=== PATIENT | male | born 1935 | race Asian ===

== ENCOUNTER 2016-12-09 17:27 | Inpatient (IN) | payer MEDICARE, MEDICAID ==
--- NOTE | 2016-12-09 19:51 | ED Physician Chart ---
Chief Complaint/HPI - Patient Information Date Seen:: 12/09/16 Time Seen:: 17:30 Chief Complaint:: black tarry stools History of Present Illness:: location: general quality: black tarry stools severity: moderate duration: 4 days context: SN[facility] patient reports he has had black tarry stools for at least 4 days. no pain complaint. has not had this before. no fever. no vomiting. pt is in stable condition. no chest pain, no sob. mod factors: none assoc s/s: none hx from pt. Allergies:: Allergies Allergy/AdvReac Type Severity Reaction Status Date / Time No Known Allergies Allergy Verified 12/09/16 17:54 Vitals:: Vital Signs - 8 hr 12/09/16 17:27 Temp 97.5 F HR 60 RR 16 BP 92/62 O2 Sat % 98 Historian:: Patient, EMS Review:: Nurse's Note Reviewed, EMS run form Reviewed Review of Systems - Review of Systems General/Constitutional: No fever, No chills, No weight loss, No weakness, No diaphoresis, No edema, No loss of appetite Skin: No skin lesions, No rash, No bruising Head: No headache, No light-headedness Eyes: No loss of vision, No pain, No diplopia ENT: No earache, No nasal drainage, No sore throat, No tinnitus Neck: No neck pain, No swelling, No thyromegaly, No stiffness, No mass noted Cardio Vascular: No chest pain, No palpitations, No PND, No orthopnea, No edema Pulmonary: No SOB, No cough, No sputum, No wheezing GI: No nausea, No vomiting, No diarrhea, No pain, No melena, No hematochezia, No constipation, No hematemesis, Other (black tarry stools) G/U: No dysuria, No frequency, No hematuria Musculoskeletal: No bone or joint pain, No back pain, No muscle pain Endocrine: No polyuria, No polydipsia Psychiatric: No prior psych history, No depression, No anxiety, No suicidal ideation Hematopoietic: No bruising, No lymphadenopathy Allergic/Immuno: No urticaria, No angioedema Neurological: No syncope, No focal symptoms, No weakness, No paresthesia, No headache, No seizure, No dizziness, No confusion, No vertigo Past Medical History - Past Medical History Past Medical History: Other (atrial fibrillation, gout) Family History: None Social History: Non Smoker, No Alcohol, No Drug Use, Single, Care Facility Surgical History: None Psychiatricy History: None Medication: Reviewed Family Medical History - Family Member Mother History Unknown: Yes Physical Exam - Physical Examination General/Constitutional: Awake, Well-developed, well-nourished, Alert, No distress, GCS 15, Non-toxic appearing Head: Atraumatic Eyes: Lids, conjuctiva normal, PERRL, EOMI Skin: Nl inspection, No rash, No skin lesions, No ecchymosis, Well hydrated, No lymphadenopathy ENMT: External ears, nose nl, Nasal exam nl, Lips, teeth, gums nl Neck: Nontender, No JVD, No nuchal rigidity, No stridor Respiratory: Nl effort/Exclusion, Clear to Auscultation, No Wheeze/Rhonchi/Rales Cardio Vascular: RRR, No murmur, gallop, rubs, NL S1 S2 GI: No tenderness/rebounding/guarding, Normal BS's, Nondistended, No mass/bruits , No McBurney tenderness : No CVA tenderness Extremities: No tenderness or effusion, Full ROM, normal strength in all extremities (lower limbs with skin discoloration, hyperpigmentation. - chronic) , No edema, Normal digits & nails Neuro/Psych: Alert/oriented, Normal sensory exam, Normal motor strength, Judgement/insight normal, Mood normal, Normal gait, No focal deficits Misc: normal gait, Normal back, No paraspinal tenderness Labs/Radiology/EKG Results - Lab Results Results: Laboratory Tests 12/09/16 12/09/16 12/09/16 19:55 19:55 19:55 WBC 7.2 RBC 3.23 L Hgb 10.1 L Hct 29.5 L MCV 91.3 MCH 31.4 H MCHC Differential 34.4 RDW 15.9 Plt Count 111 L MPV 8.9 Neutrophils % 79.1 Lymphocytes % 9.1 L Monocytes % 10.2 H Eosinophils % 1.1 Basophils % 0.5 Sodium 135 L Potassium 4.6 Chloride 112 H Carbon Dioxide 15.4 L Anion Gap 12.2 BUN 76 H Creatinine 2.5 H Est GFR ( Amer) TNP Est GFR (Non-Af Amer) TNP BUN/Creatinine Ratio 30.4 Glucose 99 Calcium 9.2 Total Bilirubin 0.4 AST 21 ALT 12 Alkaline Phosphatase 81 Total Protein 6.9 Albumin 3.6 L Globulin 3.3 Albumin/Globulin Ratio 1.1 Urine Source Urine Color Urine Clarity Urine pH Ur Specific [place] Urine Protein Urine Glucose (UA) Urine Ketones Urine Blood Urine Nitrate Urine Bilirubin Urine Urobilinogen Ur Leukocyte Esterase Urine RBC Urine WBC Ur Epithelial Cells Urine Bacteria Digoxin 0.4 L 12/09/16 21:20 WBC RBC Hgb Hct MCV MCH MCHC Differential RDW Plt Count MPV Neutrophils % Lymphocytes % Monocytes % Eosinophils % Basophils % Sodium Potassium Chloride Carbon Dioxide Anion Gap BUN Creatinine Est GFR ( Amer) Est GFR (Non-Af Amer) BUN/Creatinine Ratio Glucose Calcium Total Bilirubin AST ALT Alkaline Phosphatase Total Protein Albumin Globulin Albumin/Globulin Ratio Urine Source CLEAN C Urine Color YELLOW Urine Clarity HAZY Urine pH 5.5 Ur Specific [place] 1.015 Urine Protein 30 H Urine Glucose (UA) NEGATIVE Urine Ketones NEGATIVE Urine Blood SMALL H Urine Nitrate NEGATIVE Urine Bilirubin NEGATIVE Urine Urobilinogen 0.2 Ur Leukocyte Esterase SMALL H Urine RBC 0-2 H Urine WBC >100 H Ur Epithelial Cells OCCASIONAL Urine Bacteria OCCASIONAL Digoxin - EKG Interpretations Comments:: ekg sinus tachycardia 104 atrial premature complexes LVH with secondary repolarization abnormality inferior infarct, old pt with no chest pain chronic findings no acute ST elevation no acute ST depression abnormal EKG ER READ ED Septic Shock - . Is Septic Shock (SBP<90, OR Lactate>4 mmol\L) present?: No - <6hrs of presentation: Vital Signs: Vital Signs - 8 hr 12/09/16 17:27 Temp 97.5 F HR 60 RR 16 BP 92/62 O2 Sat % 98 Reassessment (Disposition) - Reassessment Reassessment:: MDM: pt with 4 day history of tarry stools, stable vital signs, will admit and obtain GI consult. ER Course: pt with tachycardia initially, IV fluids administered. improved. Reassessment Condition:: Improved - Diagnosis Diagnosis:: lower GI bleed - Patient Disposition Discharge/Transfer:: Acute Care w/in this hosp Admitted to:: Med/Surg Admitting Medical Physician:: Ramiro Honeycutt Time:: 23:10 Condition at Disposition:: Stable, Improved
[2016-12-09] MEDS ORDERED: Sodium Chloride 0.9% 1,000 ML IV ONE (19:52)
[2016-12-09 21:53] LABS: % BASOPHILS 0.5 % (0.0-2.0); % EOSINOPHILS 1.1 % (0.0-5.0); % LYMPHOCYTES 9.1 % (20.0-50.0); % MONOCYTES 10.2 % (2.0-10.0); % NEUTROPHILS 79.1 % (40.0-80.0); HEMATOCRIT 29.5 % (39.0-49.0); HEMOGLOBIN 10.1 gm/dL (12.6-17.4); MEAN CELL VOLUME 91.3 fl (80-99); MEAN CORPUSCULAR HEMOGLOBIN 31.4 pg (27.0-31.0); MEAN CORPUSCULAR HGB CONC 34.4 pg (28.0-36.0); MEAN PLATELET VOLUME 8.9 fl; NEUTROPHILE ABSOLUTE 5.7 Th/cmm (1.8-8.0); PLATELET COUNT 111 Th/cmm (150-400); RED BLOOD COUNT 3.23 Mil/cmm (3.80-5.80); RED CELL DISTRIBUTION WIDTH 15.9 % (11.5-20.0); WHITE BLOOD COUNT 7.2 Th/cmm (4.8-10.8)
[2016-12-09 22:03] LABS: ALB/GLOB RATIO 1.1 (1.0-1.8); ALKALINE PHOSPHATASE 81 U/L (34-104); ANION GAP 12.2 (7.0-16.0); BILIRUBIN,TOTAL 0.4 mg/dL (0.3-1.0); BUN - UREA NITROGEN 76 mg/dL (7-25); BUN/CREATININE RATIO 30.4; CALCIUM SERUM 9.2 mg/dL (8.6-10.3); CARBON DIOXIDE 15.4 mEq/L (21.0-31.0); CHLORIDE 112 mEq/L (98-107); CREATININE - SERUM 2.5 mg/dL (0.7-1.3); GLUCOSE 99 mg/dL (70-105); POTASSIUM SERUM 4.6 mEq/L (3.5-5.1); SGOT 21 U/L (13-39); SGPT/ALT 12 U/L (7-52); SODIUM SERUM 135 mEq/L (136-145)
[2016-12-09 22:41] LABS: URINE BILIRUBIN NEGATIVE (NEGATIVE); URINE BLOOD SMALL (NEGATIVE); URINE COLOR YELLOW; URINE GLUCOSE (UA) NEGATIVE (NEGATIVE); URINE KETONE NEGATIVE (NEGATIVE); URINE PH 5.5; URINE PROTEIN 30 mg/dL (NEGATIVE)
[2016-12-09 22:42] LABS: URINE RBC 0-2 /hpf (0-5); URINE UROBILINOGEN 0.2 E.U./dL (0.2 - 1.0); URINE WBC >100 /hpf (0-5)
[2016-12-09 22:43] LABS: URINE BACTERIA OCCASIONAL /hpf (NONE SEEN); URINE EPITHELIAL CELLS OCCASIONAL /lpf (FEW)
[2016-12-10] MEDS ORDERED: cefTRIAXone 1 GM in 0.9% NS 50 ML IV ONE (01:00)
[2016-12-10] MEDS: Sodium Chloride 0.9% 1,000 ML IV SCH ×2 (02:12→22:00)
[2016-12-10 02:41] VITALS: BP 106/67
[2016-12-10 07:58] LABS: % BASOPHILS 0.5 % (0.0-2.0); % EOSINOPHILS 1.5 % (0.0-5.0); % LYMPHOCYTES 10.3 % (20.0-50.0); % MONOCYTES 11.2 % (2.0-10.0); % NEUTROPHILS 76.5 % (40.0-80.0); HEMATOCRIT 28.7 % (39.0-49.0); HEMOGLOBIN 9.6 gm/dL (12.6-17.4); MEAN CELL VOLUME 92.7 fl (80-99); MEAN CORPUSCULAR HEMOGLOBIN 30.9 pg (27.0-31.0); MEAN CORPUSCULAR HGB CONC 33.4 pg (28.0-36.0); MEAN PLATELET VOLUME 8.6 fl; NEUTROPHILE ABSOLUTE 5.8 Th/cmm (1.8-8.0); PLATELET COUNT 108 Th/cmm (150-400); RED CELL DISTRIBUTION WIDTH 16.1 % (11.5-20.0); WHITE BLOOD COUNT 7.5 Th/cmm (4.8-10.8)
[2016-12-10 08:09] LABS: ANION GAP 6.4 (7.0-16.0); BUN - UREA NITROGEN 70 mg/dL (7-25); BUN/CREATININE RATIO 30.4; CALCIUM SERUM 8.9 mg/dL (8.6-10.3); CARBON DIOXIDE 18.9 mEq/L (21.0-31.0); CHLORIDE 117 mEq/L (98-107); CHOLESTEROL 108 mg/dL (<200); CREATININE - SERUM 2.3 mg/dL (0.7-1.3); GLUCOSE 91 mg/dL (70-105); POTASSIUM SERUM 4.3 mEq/L (3.5-5.1); SODIUM SERUM 138 mEq/L (136-145); TRIGLYCERIDES 52 mg/dL (<150)
[2016-12-10 08:14] LABS: INR 1.08 (0.5-1.4); PROTHROMBIN TIME (TEST) 10.8 SECONDS (9.5-11.5)
[2016-12-10] MEDS: Multivitamin Tab PO SCH (08:57)
[2016-12-10] MEDS ORDERED: ARGININE PO SCH (09:00)
--- NOTE | 2016-12-10 20:58 | History & Physical ---
HISTORY OF PRESENT ILLNESS: The patient recently was discharged from [place] to [facility]. The patient apparently had a sudden onset of black tarry stools and was brought to the ER, and the patient was admitted for upper GI bleeding. The patient complains of generalized weakness, otherwise his systems' review was negative. PAST MEDICAL HISTORY: History of gout, history of atrial fibrillation, and history of no other problems. PHYSICAL EXAMINATION: GENERAL: Alert and oriented well-nourished male. VITAL SIGNS: Stable. HEAD: Normal. ENT: Normal. NECK: Supple. Nontender. LUNGS: Clear. CARDIOVASCULAR: S1 and S2 heard. ABDOMEN: Soft. Bowel sounds are heard. [employer]: Grossly normal. LABORATORY DATA: White count is 7.2, hemoglobin 10.1, and the patient's EKG showed sinus tachycardia ____ and atrial premature beats and LVH and old inferior infarct. DIAGNOSES: 1. Anemia, rule out upper gastrointestinal bleeding. 2. History of recent pneumonia. 3. History of chronic obstructive pulmonary disease. 4. History of gout. 5. History of atrial fibrillation. 6. History of inferior wall infarction . PLAN: The patient is being admitted and I will go ahead and do the GI consult and I will follow the patient. [facility]# [id number]
--- NOTE | 2016-12-10 22:57 | Admit Criteria Form ---
Admit Criteria Forms - Admit Criteria Diagnosis: PNEUMONIA, COMMUNITY ACQUIRED Clinical Indications for Admission to Inpatient Care ( Place 'X' for any and all applicable criteria): Admission is indicated for ANY ONE of the following (1)(2)(3): [ ]I. Hypoxemia indicated by ANY ONE of the following: [ ]a) Oxygen saturation less than 90% while breathing room air [ ]b) PO2 less than 60 mm Hg (8.0 kPa) while breathing room air [ ]c) Chronic lung disease with significant deterioration from baseline oxygenation [ ]II. Appropriate diagnostic testing and treatment unavailable in outpatient or recovery facility (eg,testing or infection control measures unavailable(10) [ X]III. Moderate-risk or high-risk category patients (Pneumonia Severity Index (PSI) class IV or V, or CURB-65 score of 3 or greater). [ ]IV. Outpatient treatment failure as indicated by ANY ONE of the following(9) : [ ]a) Failure to respond to antibiotic (eg, resistant organism) [ ]b) Clinically significant adverse effects from medication (eg, vomiting) [ ]c) Complications of pneumonia (eg, empyema, bacteremia) [ ]d) Significant worsening of comorbid cond necessitating inpatient care (eg, chronic heart failure) [ ]V. Intermediate-risk category patients (eg, PSI class III or CURB-65 score 2) who do not improve with initial therapy and observation. [ ]. Immunocompromised patients (eg, AIDS, chronic steroid use) at moderate or high risk based on clinical evaluation. [ ]VII. Complicated pleural effusions (eg, exudative, loculated) [ ]VIII.Hemodynamic instability [ ] IX. Altered mental status that is severe or persistent. [ ]X. Dehydration that is severe or persistent. [ ]XI. Bacteremia [ ]XII. Respiratory finding (eg. tachypnea) that do not respond to outpatient or observation care treatment Extended stay beyond goal length of stay may be needed for (20) [ ]a) Unclear diagnosis [ ]b) Pleural disease [ ]c) Severe pneumonia or treatment failure (25 [ ]d) Respiratory failure (anticipate invasive or noninvasive ventilatory support) [ ]e) Abnormal serum electrolytes (serum Na concentration less than 135 mEq/L (mmol/L) (32)(33) [ ]f) Clinically significant comorbid illness (eg, heart failure, atrial fibrillation with rapid heart rate, alcohol withdrawal, renal insufficiency)(34)(35) [ ]g) Comorbid acute exacerbation of COPD(36) [ ]h) Concomitant diagnosis of malignancy that may be associated with malnutrition, immunologic impairment, or bronchial obstruction. [ ]i) Concomitant altered mental status [ ]j) Culture-identified Gram-negative or antibiotic-resistant organism (eg, Pseudomonas, methicillin-resistant Staphylococcus aureus)(30) [ ]k) Healthcare-associated pneumonia The original [facility] content created by [employer] has been revised. The portions of the content which have been revised are identified through the use of italic text or in bold, and [facility] has neither reviewed nor approved the modified material. All other unmodified content is copyright [facility]. Please see references footnoted in the original [facility] [employer] edition 2016 Admit Criteria Met?: Yes
--- NOTE | 2016-12-11 01:36 | Consultation ---
INPATIENT GI CONSULT REFERRING PHYSICIAN: Dr. Honeycutt. REASON FOR CONSULTATION: Anemia, melena. HISTORY OF PRESENT ILLNESS: This is an 81-year-old male who has been having melena for the past 5 days and It was not associated with any nausea or vomiting. The patient denies having any abdominal pain. States his stools are dark and some loose. PAST MEDICAL HISTORY: Atrial fibrillation and gout. PAST SURGICAL HISTORY: None to add recently. FAMILY HISTORY: Noncontributory. SOCIAL HISTORY: No tobacco, alcohol, or IV drug usage. ALLERGIES: None. CURRENT MEDICATIONS: Zyloprim, Lanoxin, and normal saline. REVIEW OF SYSTEMS: Ten-point review of systems was performed. The pertinent positive was the melena. All other systems were otherwise negative. PHYSICAL EXAMINATION: VITAL SIGNS: Temperature 98, breathing 19, pulse of 101, blood pressure 93/60, and satting 97%. GENERAL: No apparent distress. EYES: Anicteric, normal conjunctivae. HEENT: Normocephalic and atraumatic. Moist mucous membranes. NECK: Soft, supple. CHEST: Clear, normal effort. CARDIOVASCULAR: Regular rate and rhythm. ABDOMEN: Soft, nontender, and nondistended. Normal bowel sounds. SKIN: Warm and dry. EXTREMITIES: Reveal no cyanosis. PSYCHOLOGIC: Alert and oriented x 3. LABORATORY DATA: Show white count ____, hemoglobin 9.6, and platelets of 108,000. INR is 1.08. LFTs were within normal limits. IMPRESSION: This is an 81-year-old male with melena and anemia, cause could be an upper versus lower source such as peptic ulcer disease, neoplasm, colitis, gastritis, etc. The patient was offered endoscopy, colonoscopy to evaluate the source of gastrointestinal bleeding and further therapeutic intervention. The patient declined. The patient was then made aware that failure to have proper workup could result in a missed diagnosis such as cancer, missed cure and treatment opportunity resulting in early or unforeseeable disability. He expressed understanding. All his questions were answered. At the present time, he is refusing to have ____. PLAN: 1. Follow H and H. 2. Consider EGD, colonoscopy if patient changes his mind. Thank you for allowing me to participate. Please call me if you have any questions. JOB# [id number]
[2016-12-11] MEDS: Sodium Chloride 0.9% 1,000 ML IV SCH ×2 (08:02→21:00)
[2016-12-11] MEDS: Multivitamin Tab PO SCH (08:12)
--- NOTE | 2016-12-11 09:59 | General Progress Note ---
Objective - Results Result Diagrams: 12/10/16 07:30 12/10/16 07:30 Recent Labs: Laboratory Last Values WBC 7.5 Th/cmm (4.8-10.8) 12/10/16 07:30 RBC 3.10 Mil/cmm (3.80-5.80) L 12/10/16 07:30 Hgb 9.6 gm/dL (12.6-17.4) L 12/10/16 07:30 Hct 28.7 % (39.0-49.0) L 12/10/16 07:30 MCV 92.7 fl (80-99) 12/10/16 07:30 MCH 30.9 pg (27.0-31.0) 12/10/16 07:30 MCHC Differential 33.4 pg (28.0-36.0) 12/10/16 07:30 RDW 16.1 % (11.5-20.0) 12/10/16 07:30 Plt Count 108 Th/cmm (150-400) L 12/10/16 07:30 MPV 8.6 fl 12/10/16 07:30 Neutrophils % 76.5 % (40.0-80.0) 12/10/16 07:30 Lymphocytes % 10.3 % (20.0-50.0) L 12/10/16 07:30 Monocytes % 11.2 % (2.0-10.0) H 12/10/16 07:30 Eosinophils % 1.5 % (0.0-5.0) 12/10/16 07:30 Basophils % 0.5 % (0.0-2.0) 12/10/16 07:30 PT 10.8 SECONDS (9.5-11.5) 12/10/16 07:30 INR 1.08 (0.5-1.4) 12/10/16 07:30 Sodium 138 mEq/L (136-145) 12/10/16 07:30 Potassium 4.3 mEq/L (3.5-5.1) 12/10/16 07:30 Chloride 117 mEq/L (98-107) H 12/10/16 07:30 Carbon Dioxide 18.9 mEq/L (21.0-31.0) L 12/10/16 07:30 Anion Gap 6.4 (7.0-16.0) L 12/10/16 07:30 BUN 70 mg/dL (7-25) H 12/10/16 07:30 Creatinine 2.3 mg/dL (0.7-1.3) H 12/10/16 07:30 Est GFR ( Amer) TNP 12/10/16 07:30 Est GFR (Non-Af Amer) TNP 12/10/16 07:30 BUN/Creatinine Ratio 30.4 12/10/16 07:30 Glucose 91 mg/dL (70-105) 12/10/16 07:30 Calcium 8.9 mg/dL (8.6-10.3) 12/10/16 07:30 Total Bilirubin 0.4 mg/dL (0.3-1.0) 12/09/16 19:55 AST 21 U/L (13-39) 12/09/16 19:55 ALT 12 U/L (7-52) 12/09/16 19:55 Alkaline Phosphatase 81 U/L (34-104) 12/09/16 19:55 Total Protein 6.9 gm/dL (6.0-8.3) 12/09/16 19:55 Albumin 3.6 gm/dL (4.2-5.5) L 12/09/16 19:55 Globulin 3.3 gm/dL 12/09/16 19:55 Albumin/Globulin Ratio 1.1 (1.0-1.8) 12/09/16 19:55 Triglycerides 52 mg/dL (<150) 12/10/16 07:30 Cholesterol 108 mg/dL (<200) 12/10/16 07:30 LDL Cholesterol Direct 51 mg/dL (75-193) L 12/10/16 07:30 HDL Cholesterol 46 mg/dL (23-92) 12/10/16 07:30 TSH 2.40 uIU/ml (0.34-5.60) 12/10/16 07:30 Urine Source CLEAN C 12/09/16 21:20 Urine Color YELLOW 12/09/16 21:20 Urine Clarity HAZY (CLEAR) 12/09/16 21:20 Urine pH 5.5 12/09/16 21:20 Ur Specific [place] 1.015 (1.005-1.030) 12/09/16 21:20 Urine Protein 30 mg/dL (NEGATIVE) H 12/09/16 21:20 Urine Glucose (UA) NEGATIVE mg/dL (NEGATIVE) 12/09/16 21:20 Urine Ketones NEGATIVE mg/dL (NEGATIVE) 12/09/16 21:20 Urine Blood SMALL (NEGATIVE) H 12/09/16 21:20 Urine Nitrate NEGATIVE (NEGATIVE) 12/09/16 21:20 Urine Bilirubin NEGATIVE (NEGATIVE) 12/09/16 21:20 Urine Urobilinogen 0.2 E.U./dL (0.2 - 1.0) 12/09/16 21:20 Ur Leukocyte Esterase SMALL (NEGATIVE) H 12/09/16 21:20 Urine RBC 0-2 /hpf (0-5) H 12/09/16 21:20 Urine WBC >100 /hpf (0-5) H 12/09/16 21:20 Ur Epithelial Cells OCCASIONAL /lpf (FEW) 12/09/16 21:20 Urine Bacteria OCCASIONAL /hpf (NONE SEEN) 12/09/16 21:20 Digoxin 0.4 ng/ml (0.8-2.0) L 12/09/16 19:55 - Physical Exam Vitals and I&O: Vital Signs Temp 98.2 F 12/11/16 08:00 Pulse 109 12/11/16 08:12 Resp 18 12/11/16 08:00 BP 96/68 12/11/16 08:00 Pulse Ox 96 12/11/16 08:00 Intake & Output 12/10/16 12/11/16 12/11/16 18:59 06:59 18:59 Intake Total 4609 947 7003 Output Total 900 Balance 1750 -650 1000 Intake: Intake, IV Amount 1000 1000 Sodium Chloride 0.9% 1, 1000 1000 000 ml @ 100 mls/hr IV . Q10H [facility] Rx#:[id number] Oral 750 250 Output: Urine 900 Other: # Voids 3 # Bowel Movements 0 0 Stool Characteristics Soft Black Green Active Medications: Current Medications Allopurinol (Zyloprim) 100 mg PO DAILY [facility] Stop: 02/08/17 08:59 Last Admin: 12/11/16 08:12 Dose: 100 mg Digoxin (Lanoxin) 0.125 mg PO Q48H [facility] Stop: 02/09/17 08:59 Last Admin: 12/11/16 08:12 Dose: 0.125 mg Sodium Chloride (Nacl 0.9%) 1,000 mls @ 100 mls/hr IV .Q10H [facility] Stop: 02/08/17 00:03 Last Admin: 12/11/16 08:02 Dose: 100 mls/hr Miscellaneous (Clinical Monitoring) 1 britt GILLESPIE PRN PRN PRN Reason: RENAL DOSING Stop: 02/08/17 08:06 Multivitamins/Vitamin C (Theragran) 1 tab PO DAILY [facility] Stop: 02/08/17 08:59 Last Admin: 12/11/16 08:12 Dose: 1 tab
[2016-12-12 07:43] LABS: INR 1.08 (0.5-1.4); PROTHROMBIN TIME (TEST) 10.7 SECONDS (9.5-11.5)
[2016-12-12 07:44] LABS: % EOSINOPHILS 1.1 % (0.0-5.0); % LYMPHOCYTES 9.1 % (20.0-50.0); % MONOCYTES 8.1 % (2.0-10.0); % NEUTROPHILS 81.7 % (40.0-80.0); HEMATOCRIT 29.9 % (39.0-49.0); HEMOGLOBIN 10.3 gm/dL (12.6-17.4); MEAN CELL VOLUME 92.3 fl (80-99); MEAN CORPUSCULAR HEMOGLOBIN 31.7 pg (27.0-31.0); MEAN CORPUSCULAR HGB CONC 34.4 pg (28.0-36.0); RED BLOOD COUNT 3.24 Mil/cmm (3.80-5.80); RED CELL DISTRIBUTION WIDTH 16.6 % (11.5-20.0)
[2016-12-12 07:47] LABS: PLATELET COUNT 183 Th/cmm (150-400); WHITE BLOOD COUNT 9.8 Th/cmm (4.8-10.8)
[2016-12-12 07:54] LABS: ALB/GLOB RATIO 1.1 (1.0-1.8); ALKALINE PHOSPHATASE 121 U/L (34-104); ANION GAP 10.4 (7.0-16.0); BILIRUBIN,TOTAL 0.5 mg/dL (0.3-1.0); BUN - UREA NITROGEN 48 mg/dL (7-25); BUN/CREATININE RATIO 26.7; CALCIUM SERUM 9.1 mg/dL (8.6-10.3); CARBON DIOXIDE 17.1 mEq/L (21.0-31.0); CHLORIDE 117 mEq/L (98-107); CREATININE - SERUM 1.8 mg/dL (0.7-1.3); GLUCOSE 99 mg/dL (70-105); POTASSIUM SERUM 4.5 mEq/L (3.5-5.1); SGOT 42 U/L (13-39); SGPT/ALT 43 U/L (7-52); SODIUM SERUM 140 mEq/L (136-145)
--- NOTE | 2016-12-12 08:34 | General Progress Note ---
Objective - Results Result Diagrams: 12/12/16 06:00 12/12/16 06:00 Recent Labs: Laboratory Last Values WBC 9.8 Th/cmm (4.8-10.8) D 12/12/16 06:00 RBC 3.24 Mil/cmm (3.80-5.80) L 12/12/16 06:00 Hgb 10.3 gm/dL (12.6-17.4) L 12/12/16 06:00 Hct 29.9 % (39.0-49.0) L 12/12/16 06:00 MCV 92.3 fl (80-99) 12/12/16 06:00 MCH 31.7 pg (27.0-31.0) H 12/12/16 06:00 MCHC Differential 34.4 pg (28.0-36.0) 12/12/16 06:00 RDW 16.6 % (11.5-20.0) 12/12/16 06:00 Plt Count 183 Th/cmm (150-400) D 12/12/16 06:00 MPV 9.0 fl 12/12/16 06:00 Neutrophils % 81.7 % (40.0-80.0) H 12/12/16 06:00 Lymphocytes % 9.1 % (20.0-50.0) L 12/12/16 06:00 Monocytes % 8.1 % (2.0-10.0) 12/12/16 06:00 Eosinophils % 1.1 % (0.0-5.0) 12/12/16 06:00 Basophils % 0.0 % (0.0-2.0) 12/12/16 06:00 PT 10.7 SECONDS (9.5-11.5) 12/12/16 06:00 INR 1.08 (0.5-1.4) 12/12/16 06:00 PTT (Actin FS) 28.2 SECONDS (26.0-38.0) 12/12/16 06:00 Sodium 140 mEq/L (136-145) 12/12/16 06:00 Potassium 4.5 mEq/L (3.5-5.1) 12/12/16 06:00 Chloride 117 mEq/L (98-107) H 12/12/16 06:00 Carbon Dioxide 17.1 mEq/L (21.0-31.0) L 12/12/16 06:00 Anion Gap 10.4 (7.0-16.0) 12/12/16 06:00 BUN 48 mg/dL (7-25) H 12/12/16 06:00 Creatinine 1.8 mg/dL (0.7-1.3) H 12/12/16 06:00 Est GFR ( Amer) TNP 12/12/16 06:00 Est GFR (Non-Af Amer) TNP 12/12/16 06:00 BUN/Creatinine Ratio 26.7 12/12/16 06:00 Glucose 99 mg/dL (70-105) 12/12/16 06:00 POC Glucose 98 MG/DL (70 - 105) 12/12/16 05:54 Calcium 9.1 mg/dL (8.6-10.3) 12/12/16 06:00 Total Bilirubin 0.5 mg/dL (0.3-1.0) 12/12/16 06:00 AST 42 U/L (13-39) H 12/12/16 06:00 ALT 43 U/L (7-52) 12/12/16 06:00 Alkaline Phosphatase 121 U/L (34-104) H 12/12/16 06:00 Total Protein 6.2 gm/dL (6.0-8.3) 12/12/16 06:00 Albumin 3.2 gm/dL (4.2-5.5) L 12/12/16 06:00 Globulin 3.0 gm/dL 12/12/16 06:00 Albumin/Globulin Ratio 1.1 (1.0-1.8) 12/12/16 06:00 Triglycerides 52 mg/dL (<150) 12/10/16 07:30 Cholesterol 108 mg/dL (<200) 12/10/16 07:30 LDL Cholesterol Direct 51 mg/dL (75-193) L 12/10/16 07:30 HDL Cholesterol 46 mg/dL (23-92) 12/10/16 07:30 TSH 2.40 uIU/ml (0.34-5.60) 12/10/16 07:30 Urine Source CLEAN C 12/09/16 21:20 Urine Color YELLOW 12/09/16 21:20 Urine Clarity HAZY (CLEAR) 12/09/16 21:20 Urine pH 5.5 12/09/16 21:20 Ur Specific [place] 1.015 (1.005-1.030) 12/09/16 21:20 Urine Protein 30 mg/dL (NEGATIVE) H 12/09/16 21:20 Urine Glucose (UA) NEGATIVE mg/dL (NEGATIVE) 12/09/16 21:20 Urine Ketones NEGATIVE mg/dL (NEGATIVE) 12/09/16 21:20 Urine Blood SMALL (NEGATIVE) H 12/09/16 21:20 Urine Nitrate NEGATIVE (NEGATIVE) 12/09/16 21:20 Urine Bilirubin NEGATIVE (NEGATIVE) 12/09/16 21:20 Urine Urobilinogen 0.2 E.U./dL (0.2 - 1.0) 12/09/16 21:20 Ur Leukocyte Esterase SMALL (NEGATIVE) H 12/09/16 21:20 Urine RBC 0-2 /hpf (0-5) H 12/09/16 21:20 Urine WBC >100 /hpf (0-5) H 12/09/16 21:20 Ur Epithelial Cells OCCASIONAL /lpf (FEW) 12/09/16 21:20 Urine Bacteria OCCASIONAL /hpf (NONE SEEN) 12/09/16 21:20 Digoxin 0.4 ng/ml (0.8-2.0) L 12/09/16 19:55 - Physical Exam Vitals and I&O: Vital Signs Temp 98.2 F 12/12/16 04:00 Pulse 102 12/12/16 04:00 Resp 19 12/12/16 04:00 BP 164/106 12/12/16 04:00 Pulse Ox 97 12/12/16 04:00 Intake & Output 12/11/16 12/12/16 12/12/16 18:59 06:59 18:59 Intake Total 2600 500 Output Total 853 800 Balance 1747 -300 Intake: Intake, IV Amount 2000 Sodium Chloride 0.9% 1, 2000 000 ml @ 100 mls/hr IV . Q10H [facility] Rx#:[id number] Oral 600 500 Output: Urine 850 800 Stool 3 Other: # Voids 1 # Bowel Movements 2 Stool Characteristics Soft Black Active Medications: Current Medications Allopurinol (Zyloprim) 100 mg PO DAILY [facility] Stop: 02/08/17 08:59 Last Admin: 12/11/16 08:12 Dose: 100 mg Digoxin (Lanoxin) 0.125 mg PO Q48H [facility] Stop: 02/09/17 08:59 Last Admin: 12/11/16 08:12 Dose: 0.125 mg Sodium Chloride (Nacl 0.9%) 1,000 mls @ 100 mls/hr IV .Q10H [facility] Stop: 02/08/17 00:03 Last Admin: 12/11/16 21:00 Dose: 100 mls/hr Miscellaneous (Clinical Monitoring) 1 britt GILLESPIE PRN PRN PRN Reason: RENAL DOSING Stop: 02/08/17 08:06 Multivitamins/Vitamin C (Theragran) 1 tab PO DAILY [facility] Stop: 02/08/17 08:59 Last Admin: 12/11/16 08:12 Dose: 1 tab
[2016-12-12] MEDS: Multivitamin Tab PO SCH (08:58)
[2016-12-12] MEDS ORDERED: Lactated Ringer 1,000 ML IV SCH (11:30)
--- NOTE | 2016-12-12 11:38 | Diagnostic Imaging Report ---
Portable chest x-ray HISTORY: Cough, preoperative The heart is enlarged. Atherosclerotic calcification is seen in the aorta. Surgical suture material and clips noted over the heart. No definite acute focal pulmonary parenchymal processes are seen. IMPRESSION: 1. No definite acute focal pulmonary processes 2. Marked cardiomegaly with atherosclerotic vascular changes 3. Surgical changes
--- NOTE | 2016-12-12 14:30 | Operative Report ---
INPATIENT GASTROINTESTINAL PROCEDURE PROCEDURE: EGD with biopsy. REFERRING PHYSICIAN: Dr. Honeycutt. REASON FOR PROCEDURE: Melena. CONSENT: Risks, benefits, alternatives, nature, indication, possible outcomes were discussed. Mentioned bleeding, infection, perforation, , disability, cardiopulmonary distress and arrest, missed lesion and cancers, need for surgery. The patient expressed understanding and provided informed consent. PREOPERATIVE DIAGNOSIS: Melena. POSTOPERATIVE DIAGNOSES: Esophageal ring that is patent, gastritis, duodenal ulcer. MEDICATIONS: Provided by anesthesiologist. DESCRIPTION OF PROCEDURE: The patient was placed on left side. Upper gastroscope advanced from the mouth into the second portion of duodenum, which appeared to be normal. Along the turn of the duodenum, there were 2 ulcers, clean based, not actively bleeding. Scope brought back in the stomach. Retroflexion view of fundus, cardia, lesser curvature. Scope was straightened and slowly withdrawn to the esophagus and removed. COMPLICATIONS: None. FINDINGS: 1. GE junction at 42 cm. 2. Patent esophageal ring distally, status post biopsy. 3. Mild gastritis in antrum, status post biopsy. 4. Duodenal ulcer x 2, clean base. No active bleeding likely source of recent bleeding. RECOMMENDATIONS: 1. Follow up on biopsy. 2. Provide the patient with Protonix b.i.d. for the next 3 months. 3. The patient should have outpatient colonoscopy for colon cancer screening if he has not had one recently. He should follow up with his primary medical doctor to have this arranged. Thank you for allowing me to participate. Please call me if any questions. JOB# [id number]
[2016-12-12] MEDS: Pantoprazole 40 mg EC Tab PO SCH (17:03)
[2016-12-12] MEDS: Sodium Chloride 0.9% 1,000 ML IV SCH (17:04)
[2016-12-13] MEDS: Pantoprazole 40 mg EC Tab PO SCH ×2 (06:43→16:14)
[2016-12-13] MEDS: Sodium Chloride 0.9% 1,000 ML IV SCH ×2 (07:35→16:14)
[2016-12-13] MEDS: Multivitamin Tab PO SCH (08:50)
--- NOTE | 2016-12-13 10:02 | General Progress Note ---
Subjective - Review of Systems Service Date: 12/13/16 Subjective: c/o sob Objective - Results Result Diagrams: 12/14/16 09:00 12/14/16 09:00 Recent Labs: Laboratory Last Values WBC 9.8 Th/cmm (4.8-10.8) D 12/12/16 06:00 RBC 3.24 Mil/cmm (3.80-5.80) L 12/12/16 06:00 Hgb 10.3 gm/dL (12.6-17.4) L 12/12/16 06:00 Hct 29.9 % (39.0-49.0) L 12/12/16 06:00 MCV 92.3 fl (80-99) 12/12/16 06:00 MCH 31.7 pg (27.0-31.0) H 12/12/16 06:00 MCHC Differential 34.4 pg (28.0-36.0) 12/12/16 06:00 RDW 16.6 % (11.5-20.0) 12/12/16 06:00 Plt Count 183 Th/cmm (150-400) D 12/12/16 06:00 MPV 9.0 fl 12/12/16 06:00 Neutrophils % 81.7 % (40.0-80.0) H 12/12/16 06:00 Lymphocytes % 9.1 % (20.0-50.0) L 12/12/16 06:00 Monocytes % 8.1 % (2.0-10.0) 12/12/16 06:00 Eosinophils % 1.1 % (0.0-5.0) 12/12/16 06:00 Basophils % 0.0 % (0.0-2.0) 12/12/16 06:00 PT 10.7 SECONDS (9.5-11.5) 12/12/16 06:00 INR 1.08 (0.5-1.4) 12/12/16 06:00 PTT (Actin FS) 28.2 SECONDS (26.0-38.0) 12/12/16 06:00 Sodium 140 mEq/L (136-145) 12/12/16 06:00 Potassium 4.5 mEq/L (3.5-5.1) 12/12/16 06:00 Chloride 117 mEq/L (98-107) H 12/12/16 06:00 Carbon Dioxide 17.1 mEq/L (21.0-31.0) L 12/12/16 06:00 Anion Gap 10.4 (7.0-16.0) 12/12/16 06:00 BUN 48 mg/dL (7-25) H 12/12/16 06:00 Creatinine 1.8 mg/dL (0.7-1.3) H 12/12/16 06:00 Est GFR ( Amer) TNP 12/12/16 06:00 Est GFR (Non-Af Amer) TNP 12/12/16 06:00 BUN/Creatinine Ratio 26.7 12/12/16 06:00 Glucose 99 mg/dL (70-105) 12/12/16 06:00 POC Glucose 98 MG/DL (70 - 105) 12/12/16 05:54 Calcium 9.1 mg/dL (8.6-10.3) 12/12/16 06:00 Total Bilirubin 0.5 mg/dL (0.3-1.0) 12/12/16 06:00 AST 42 U/L (13-39) H 12/12/16 06:00 ALT 43 U/L (7-52) 12/12/16 06:00 Alkaline Phosphatase 121 U/L (34-104) H 12/12/16 06:00 Total Protein 6.2 gm/dL (6.0-8.3) 12/12/16 06:00 Albumin 3.2 gm/dL (4.2-5.5) L 12/12/16 06:00 Globulin 3.0 gm/dL 12/12/16 06:00 Albumin/Globulin Ratio 1.1 (1.0-1.8) 12/12/16 06:00 Triglycerides 52 mg/dL (<150) 12/10/16 07:30 Cholesterol 108 mg/dL (<200) 12/10/16 07:30 LDL Cholesterol Direct 51 mg/dL (75-193) L 12/10/16 07:30 HDL Cholesterol 46 mg/dL (23-92) 12/10/16 07:30 TSH 2.40 uIU/ml (0.34-5.60) 12/10/16 07:30 Urine Source CLEAN C 12/09/16 21:20 Urine Color YELLOW 12/09/16 21:20 Urine Clarity HAZY (CLEAR) 12/09/16 21:20 Urine pH 5.5 12/09/16 21:20 Ur Specific [place] 1.015 (1.005-1.030) 12/09/16 21:20 Urine Protein 30 mg/dL (NEGATIVE) H 12/09/16 21:20 Urine Glucose (UA) NEGATIVE mg/dL (NEGATIVE) 12/09/16 21:20 Urine Ketones NEGATIVE mg/dL (NEGATIVE) 12/09/16 21:20 Urine Blood SMALL (NEGATIVE) H 12/09/16 21:20 Urine Nitrate NEGATIVE (NEGATIVE) 12/09/16 21:20 Urine Bilirubin NEGATIVE (NEGATIVE) 12/09/16 21:20 Urine Urobilinogen 0.2 E.U./dL (0.2 - 1.0) 12/09/16 21:20 Ur Leukocyte Esterase SMALL (NEGATIVE) H 12/09/16 21:20 Urine RBC 0-2 /hpf (0-5) H 12/09/16 21:20 Urine WBC >100 /hpf (0-5) H 12/09/16 21:20 Ur Epithelial Cells OCCASIONAL /lpf (FEW) 12/09/16 21:20 Urine Bacteria OCCASIONAL /hpf (NONE SEEN) 12/09/16 21:20 Digoxin 0.4 ng/ml (0.8-2.0) L 12/09/16 19:55 - Physical Exam Vitals and I&O: Vital Signs Temp 98.4 F 12/13/16 08:21 Pulse 103 12/13/16 08:50 Resp 19 12/13/16 08:21 BP 123/84 12/13/16 08:21 Pulse Ox 97 12/13/16 08:21 Intake & Output 12/12/16 12/13/16 12/13/16 18:59 06:59 18:59 Intake Total 1850 1150 Output Total 1100 150 Balance 750 1000 Weight (lbs) 58.967 kg Intake: Intake, IV Amount 1000 1000 Sodium Chloride 0.9% 1, 1000 1000 000 ml @ 100 mls/hr IV . Q10H [facility] Rx#:[id number] Oral 850 150 Output: Urine 1100 150 Stool 0 Other: # Voids 2 Stool Characteristics Formed Formed Formed Foamy Foamy Foamy Black Black Black Active Medications: Current Medications Allopurinol (Zyloprim) 100 mg PO DAILY [facility] Stop: 02/08/17 08:59 Last Admin: 12/13/16 08:50 Dose: 100 mg Digoxin (Lanoxin) 0.125 mg PO Q48H [facility] Stop: 02/09/17 08:59 Last Admin: 12/13/16 08:50 Dose: 0.125 mg Sodium Chloride (Nacl 0.9%) 1,000 mls @ 100 mls/hr IV .Q10H [facility] Stop: 02/08/17 00:03 Last Admin: 12/13/16 07:35 Dose: 100 mls/hr Lactated Ringer's (Lactated Ringer) 1,000 mls @ 0 mls/hr IV .Q0M [facility] PRN Reason: TKO Stop: 12/13/16 11:29 Miscellaneous (Clinical Monitoring) 1 ea PRN PRN PRN Reason: RENAL DOSING Stop: 02/08/17 08:06 Multivitamins/Vitamin C (Theragran) 1 tab PO DAILY [facility] Stop: 02/08/17 08:59 Last Admin: 12/13/16 08:50 Dose: 1 tab Pantoprazole Sodium (Protonix) 40 mg PO BIDAC [facility] Stop: 02/10/17 16:29 Last Admin: 12/13/16 06:43 Dose: 40 mg General: No acute distress HEENT: Atraumatic, PERRLA Neck: Supple Cardiovascular: Regular rate Lungs: Clear to auscultation Abdomen: Bowel sounds Neurological: Normal gait Skin: no Rash - Procedures Procedures: Procedures Procedure Code Date EGD BIOPSY SINGLE/MULTIPLE 13065 12/09/16 EXCISION OF ESOPHAGUS, ENDO, DIAGN [id number] 12/09/16 EXCISION OF STOMACH, ENDO, DIAGN [id number] 12/09/16 Assessment/Plan - Problem List Patient Problems: All Active Problems anemia r/o gi bleed (Acute) h/o atrial fibrillation (Acute) h/o copd (Acute) h/o gout (Acute) h/o inferior wall infraction (Acute) h/o recent pneumonia (Acute) - Plan Plan: [facility]
[2016-12-14] MEDS: Pantoprazole 40 mg EC Tab PO SCH ×2 (06:42→16:45)
--- NOTE | 2016-12-14 08:23 | General Progress Note ---
Subjective - Review of Systems Service Date: 12/14/16 Objective - Results Result Diagrams: 12/12/16 06:00 12/12/16 06:00 Recent Labs: Laboratory Last Values WBC 9.8 Th/cmm (4.8-10.8) D 12/12/16 06:00 RBC 3.24 Mil/cmm (3.80-5.80) L 12/12/16 06:00 Hgb 10.3 gm/dL (12.6-17.4) L 12/12/16 06:00 Hct 29.9 % (39.0-49.0) L 12/12/16 06:00 MCV 92.3 fl (80-99) 12/12/16 06:00 MCH 31.7 pg (27.0-31.0) H 12/12/16 06:00 MCHC Differential 34.4 pg (28.0-36.0) 12/12/16 06:00 RDW 16.6 % (11.5-20.0) 12/12/16 06:00 Plt Count 183 Th/cmm (150-400) D 12/12/16 06:00 MPV 9.0 fl 12/12/16 06:00 Neutrophils % 81.7 % (40.0-80.0) H 12/12/16 06:00 Lymphocytes % 9.1 % (20.0-50.0) L 12/12/16 06:00 Monocytes % 8.1 % (2.0-10.0) 12/12/16 06:00 Eosinophils % 1.1 % (0.0-5.0) 12/12/16 06:00 Basophils % 0.0 % (0.0-2.0) 12/12/16 06:00 PT 10.7 SECONDS (9.5-11.5) 12/12/16 06:00 INR 1.08 (0.5-1.4) 12/12/16 06:00 PTT (Actin FS) 28.2 SECONDS (26.0-38.0) 12/12/16 06:00 Sodium 140 mEq/L (136-145) 12/12/16 06:00 Potassium 4.5 mEq/L (3.5-5.1) 12/12/16 06:00 Chloride 117 mEq/L (98-107) H 12/12/16 06:00 Carbon Dioxide 17.1 mEq/L (21.0-31.0) L 12/12/16 06:00 Anion Gap 10.4 (7.0-16.0) 12/12/16 06:00 BUN 48 mg/dL (7-25) H 12/12/16 06:00 Creatinine 1.8 mg/dL (0.7-1.3) H 12/12/16 06:00 Est GFR ( Amer) TNP 12/12/16 06:00 Est GFR (Non-Af Amer) TNP 12/12/16 06:00 BUN/Creatinine Ratio 26.7 12/12/16 06:00 Glucose 99 mg/dL (70-105) 12/12/16 06:00 POC Glucose 98 MG/DL (70 - 105) 12/12/16 05:54 Calcium 9.1 mg/dL (8.6-10.3) 12/12/16 06:00 Total Bilirubin 0.5 mg/dL (0.3-1.0) 12/12/16 06:00 AST 42 U/L (13-39) H 12/12/16 06:00 ALT 43 U/L (7-52) 12/12/16 06:00 Alkaline Phosphatase 121 U/L (34-104) H 12/12/16 06:00 Total Protein 6.2 gm/dL (6.0-8.3) 12/12/16 06:00 Albumin 3.2 gm/dL (4.2-5.5) L 12/12/16 06:00 Globulin 3.0 gm/dL 12/12/16 06:00 Albumin/Globulin Ratio 1.1 (1.0-1.8) 12/12/16 06:00 Triglycerides 52 mg/dL (<150) 12/10/16 07:30 Cholesterol 108 mg/dL (<200) 12/10/16 07:30 LDL Cholesterol Direct 51 mg/dL (75-193) L 12/10/16 07:30 HDL Cholesterol 46 mg/dL (23-92) 12/10/16 07:30 TSH 2.40 uIU/ml (0.34-5.60) 12/10/16 07:30 Urine Source CLEAN C 12/09/16 21:20 Urine Color YELLOW 12/09/16 21:20 Urine Clarity HAZY (CLEAR) 12/09/16 21:20 Urine pH 5.5 12/09/16 21:20 Ur Specific [place] 1.015 (1.005-1.030) 12/09/16 21:20 Urine Protein 30 mg/dL (NEGATIVE) H 12/09/16 21:20 Urine Glucose (UA) NEGATIVE mg/dL (NEGATIVE) 12/09/16 21:20 Urine Ketones NEGATIVE mg/dL (NEGATIVE) 12/09/16 21:20 Urine Blood SMALL (NEGATIVE) H 12/09/16 21:20 Urine Nitrate NEGATIVE (NEGATIVE) 12/09/16 21:20 Urine Bilirubin NEGATIVE (NEGATIVE) 12/09/16 21:20 Urine Urobilinogen 0.2 E.U./dL (0.2 - 1.0) 12/09/16 21:20 Ur Leukocyte Esterase SMALL (NEGATIVE) H 12/09/16 21:20 Urine RBC 0-2 /hpf (0-5) H 12/09/16 21:20 Urine WBC >100 /hpf (0-5) H 12/09/16 21:20 Ur Epithelial Cells OCCASIONAL /lpf (FEW) 12/09/16 21:20 Urine Bacteria OCCASIONAL /hpf (NONE SEEN) 12/09/16 21:20 Digoxin 0.4 ng/ml (0.8-2.0) L 12/09/16 19:55 - Physical Exam Vitals and I&O: Vital Signs Temp 97.0 F 12/14/16 07:47 Pulse 90 12/14/16 07:47 Resp 20 12/14/16 07:47 BP 118/84 12/14/16 07:47 Pulse Ox 95 12/14/16 07:47 Intake & Output 12/13/16 12/14/16 12/14/16 18:59 06:59 18:59 Intake Total 2415 100 Output Total 1200 1 Balance 1215 99 Intake: Intake, IV Amount 865 Sodium Chloride 0.9% 1, 865 000 ml @ 100 mls/hr IV . Q10H [facility] Rx#:[id number] Oral 1550 100 Output: Urine 1200 Stool 1 Other: # Voids 4 # Bowel Movements 2 Stool Characteristics Soft Brown Active Medications: Current Medications Allopurinol (Zyloprim) 100 mg PO DAILY [facility] Stop: 02/08/17 08:59 Last Admin: 12/13/16 08:50 Dose: 100 mg Digoxin (Lanoxin) 0.125 mg PO Q48H [facility] Stop: 02/09/17 08:59 Last Admin: 12/13/16 08:50 Dose: 0.125 mg Sodium Chloride (Nacl 0.9%) 1,000 mls @ 100 mls/hr IV .Q10H [facility] Stop: 02/08/17 00:03 Last Admin: 12/13/16 16:14 Dose: 100 mls/hr Miscellaneous (Clinical Monitoring) 1 ea MC PRN PRN PRN Reason: RENAL DOSING Stop: 02/08/17 08:06 Multivitamins/Vitamin C (Theragran) 1 tab PO DAILY [facility] Stop: 02/08/17 08:59 Last Admin: 12/13/16 08:50 Dose: 1 tab Pantoprazole Sodium (Protonix) 40 mg PO BIDAC [facility] Stop: 02/10/17 16:29 Last Admin: 12/14/16 06:42 Dose: 40 mg General: No acute distress HEENT: Atraumatic Neck: Supple, JVD Cardiovascular: Regular rate Lungs: Clear to auscultation Abdomen: Bowel sounds - Procedures Procedures: Procedures Procedure Code Date EGD BIOPSY SINGLE/MULTIPLE 77824 12/09/16 EXCISION OF ESOPHAGUS, ENDO, DIAGN [id number] 12/09/16 EXCISION OF STOMACH, ENDO, DIAGN [id number] 12/09/16 Assessment/Plan - Problem List Patient Problems: All Active Problems anemia r/o gi bleed (Acute) h/o atrial fibrillation (Acute) h/o copd (Acute) h/o gout (Acute) h/o inferior wall infraction (Acute) h/o recent pneumonia (Acute) - Plan Plan: continue current care management
[2016-12-14] MEDS: Multivitamin Tab PO SCH (08:46)
[2016-12-14 09:11] LABS: HEMOGLOBIN 11.3 gm/dL (12.6-17.4); MEAN CELL VOLUME 92.8 fl (80-99); MEAN CORPUSCULAR HEMOGLOBIN 31.8 pg (27.0-31.0); MEAN CORPUSCULAR HGB CONC 34.3 pg (28.0-36.0); MEAN PLATELET VOLUME 8.5 fl; RED BLOOD COUNT 3.56 Mil/cmm (3.80-5.80); RED CELL DISTRIBUTION WIDTH 16.8 % (11.5-20.0)
[2016-12-14 09:19] LABS: HEMATOCRIT 33.1 % (39.0-49.0); PLATELET COUNT 301 Th/cmm (150-400); WHITE BLOOD COUNT 12.8 Th/cmm (4.8-10.8)
[2016-12-14 09:38] LABS: ANISOCYTOSIS 1+; EOSINOPHIL 0 % (0-5); NEUTROPHILS 92 % (40-80); PLATELET ESTIMATE ADEQUATE (NORMAL); PLATELET MORPHOLOGY NORMAL (NORMAL); POLYCHROMASIA 2+; TOTAL CELLS COUNTED 100
[2016-12-14 09:59] LABS: ANION GAP 8.9 (7.0-16.0); BUN - UREA NITROGEN 52 mg/dL (7-25); BUN/CREATININE RATIO 21.7; CALCIUM SERUM 9.4 mg/dL (8.6-10.3); CARBON DIOXIDE 14.1 mEq/L (21.0-31.0); CHLORIDE 120 mEq/L (98-107); CREATININE - SERUM 2.4 mg/dL (0.7-1.3); GLUCOSE 131 mg/dL (70-105); SODIUM SERUM 138 mEq/L (136-145)
[2016-12-14] MEDS: Sodium Chloride 0.9% 1,000 ML IV SCH (14:37)
[2016-12-15] MEDS: Sodium Chloride 0.9% 1,000 ML IV SCH (00:34)
[2016-12-15] MEDS: Pantoprazole 40 mg EC Tab PO SCH ×2 (06:34→08:50)
[2016-12-15] MEDS: Multivitamin Tab PO SCH (08:50)
--- NOTE | 2016-12-15 12:16 | Pathology Report ---
[id number] Collection date: 12/12/2016 Surgeon: Dr. Tesha Hester Specimen Description: 1. Duodenum biopsy. 2. Antrum biopsy. 3. Esophagus biopsy. Gross Description: Part I: Received in formalin are two alfaro soft tissue fragments ranging from 0.1 and 0.2 cm in greatest dimension. Totally submitted in one cassette labeled A. Gross Description: Part II: Received in formalin is a single alfaro soft tissue fragment measuring 0.2 cm in greatest dimension. Totally submitted in one cassette labeled B. Gross Description: Part III: Received in formalin is a single alfaro soft tissue fragment measuring 0.2 cm in greatest dimension. Totally submitted in one cassette labeled C. Microscopic Description: Part I: The histologic sections show duodenal mucosa with intact intestinal villi present, showing no significant structural abnormalities. There is mild chronic inflammation present consisting of slightly increased numbers of lymphocytes and plasma cells. Diagnosis: Part I: 1. Mild nonspecific chronic inflammation, duodenum biopsy. 2. There is no evidence for celiac disease/[place]. Microscopic Description: Part II: The histologic sections show gastric mucosa with mild chronic inflammation present consisting of increased numbers of lymphocytes and plasma cells. The Giemsa stain shows no evidence of Helicobacter pylori. Diagnosis: Part II: 1. Mild chronic gastritis, antrum biopsy. 2. The Giemsa stain is negative for Helicobacter pylori. Microscopic Description: Part III: The histologic sections show esophageal mucosa with mild chronic inflammation present consisting of lymphocytes and plasma cells. The PAS stain shows no evidence for fungal organisms. The Alcian blue stain shows no significant abnormalities. Diagnosis: Part III: Mild chronic esophagitis (esophageal biopsy). [facility]# [id number] [facility]
--- NOTE | 2016-12-15 15:00 | General Progress Note ---
Objective - Results Result Diagrams: 12/14/16 09:00 12/14/16 09:00 Recent Labs: Laboratory Last Values WBC 12.8 Th/cmm (4.8-10.8) H D 12/14/16 09:00 RBC 3.56 Mil/cmm (3.80-5.80) L 12/14/16 09:00 Hgb 11.3 gm/dL (12.6-17.4) L 12/14/16 09:00 Hct 33.1 % (39.0-49.0) L D 12/14/16 09:00 MCV 92.8 fl (80-99) 12/14/16 09:00 MCH 31.8 pg (27.0-31.0) H 12/14/16 09:00 MCHC Differential 34.3 pg (28.0-36.0) 12/14/16 09:00 RDW 16.8 % (11.5-20.0) 12/14/16 09:00 Plt Count 301 Th/cmm (150-400) D 12/14/16 09:00 MPV 8.5 fl 12/14/16 09:00 Neutrophils % 81.7 % (40.0-80.0) H 12/12/16 06:00 Lymphocytes % 9.1 % (20.0-50.0) L 12/12/16 06:00 Monocytes % 8.1 % (2.0-10.0) 12/12/16 06:00 Eosinophils % 1.1 % (0.0-5.0) 12/12/16 06:00 Basophils % 0.0 % (0.0-2.0) 12/12/16 06:00 Neutrophils (Manual) 92 % (40-80) H 12/14/16 09:00 Lymphocytes 3 % (20-50) L 12/14/16 09:00 Monocytes 5 % (2-10) 12/14/16 09:00 Eosinophils 0 % (0-5) 12/14/16 09:00 Platelet Estimate ADEQUATE (NORMAL) 12/14/16 09:00 Platelet Morphology NORMAL (NORMAL) 12/14/16 09:00 Polychromasia 2+ 12/14/16 09:00 Anisocytosis 1+ 12/14/16 09:00 RBC Morph Micro Appear ABNORMAL (NORMAL) 12/14/16 09:00 PT 10.7 SECONDS (9.5-11.5) 12/12/16 06:00 INR 1.08 (0.5-1.4) 12/12/16 06:00 PTT (Actin FS) 28.2 SECONDS (26.0-38.0) 12/12/16 06:00 Sodium 138 mEq/L (136-145) 12/14/16 09:00 Potassium 5.0 mEq/L (3.5-5.1) 12/14/16 09:00 Chloride 120 mEq/L (98-107) H 12/14/16 09:00 Carbon Dioxide 14.1 mEq/L (21.0-31.0) L 12/14/16 09:00 Anion Gap 8.9 (7.0-16.0) 12/14/16 09:00 BUN 52 mg/dL (7-25) H 12/14/16 09:00 Creatinine 2.4 mg/dL (0.7-1.3) H 12/14/16 09:00 Est GFR ( Amer) TNP 12/14/16 09:00 Est GFR (Non-Af Amer) TNP 12/14/16 09:00 BUN/Creatinine Ratio 21.7 12/14/16 09:00 Glucose 131 mg/dL (70-105) H 12/14/16 09:00 POC Glucose 98 MG/DL (70 - 105) 12/12/16 05:54 Calcium 9.4 mg/dL (8.6-10.3) 12/14/16 09:00 Total Bilirubin 0.5 mg/dL (0.3-1.0) 12/12/16 06:00 AST 42 U/L (13-39) H 12/12/16 06:00 ALT 43 U/L (7-52) 12/12/16 06:00 Alkaline Phosphatase 121 U/L (34-104) H 12/12/16 06:00 Total Protein 6.2 gm/dL (6.0-8.3) 12/12/16 06:00 Albumin 3.2 gm/dL (4.2-5.5) L 12/12/16 06:00 Globulin 3.0 gm/dL 12/12/16 06:00 Albumin/Globulin Ratio 1.1 (1.0-1.8) 12/12/16 06:00 Triglycerides 52 mg/dL (<150) 12/10/16 07:30 Cholesterol 108 mg/dL (<200) 12/10/16 07:30 LDL Cholesterol Direct 51 mg/dL (75-193) L 12/10/16 07:30 HDL Cholesterol 46 mg/dL (23-92) 12/10/16 07:30 TSH 2.40 uIU/ml (0.34-5.60) 12/10/16 07:30 Urine Source CLEAN C 12/09/16 21:20 Urine Color YELLOW 12/09/16 21:20 Urine Clarity HAZY (CLEAR) 12/09/16 21:20 Urine pH 5.5 12/09/16 21:20 Ur Specific [place] 1.015 (1.005-1.030) 12/09/16 21:20 Urine Protein 30 mg/dL (NEGATIVE) H 12/09/16 21:20 Urine Glucose (UA) NEGATIVE mg/dL (NEGATIVE) 12/09/16 21:20 Urine Ketones NEGATIVE mg/dL (NEGATIVE) 12/09/16 21:20 Urine Blood SMALL (NEGATIVE) H 12/09/16 21:20 Urine Nitrate NEGATIVE (NEGATIVE) 12/09/16 21:20 Urine Bilirubin NEGATIVE (NEGATIVE) 12/09/16 21:20 Urine Urobilinogen 0.2 E.U./dL (0.2 - 1.0) 12/09/16 21:20 Ur Leukocyte Esterase SMALL (NEGATIVE) H 12/09/16 21:20 Urine RBC 0-2 /hpf (0-5) H 12/09/16 21:20 Urine WBC >100 /hpf (0-5) H 12/09/16 21:20 Ur Epithelial Cells OCCASIONAL /lpf (FEW) 12/09/16 21:20 Urine Bacteria OCCASIONAL /hpf (NONE SEEN) 12/09/16 21:20 Digoxin 0.4 ng/ml (0.8-2.0) L 12/09/16 19:55 - Physical Exam Vitals and I&O: Vital Signs Temp 96.4 F 12/15/16 14:51 Pulse 97 12/15/16 14:51 Resp 18 12/15/16 14:51 BP 133/91 12/15/16 14:51 Pulse Ox 96 12/15/16 14:51 Intake & Output 12/14/16 12/15/16 12/15/16 18:59 06:59 18:59 Intake Total 1650 1195 Balance 1650 1195 Intake: Intake, IV Amount 995 Sodium Chloride 0.9% 1, 995 000 ml @ 100 mls/hr IV . Q10H [facility] Rx#:[id number] Oral 1650 200 Other: # Voids 4 6 # Bowel Movements 1 1 Stool Characteristics Soft Soft Soft Foamy Foamy Brown Brown Active Medications: Current Medications Allopurinol (Zyloprim) 100 mg PO DAILY [facility] Stop: 02/08/17 08:59 Last Admin: 12/15/16 08:50 Dose: 100 mg Digoxin (Lanoxin) 0.125 mg PO Q48H [facility] Stop: 02/09/17 08:59 Last Admin: 12/15/16 08:51 Dose: 0.125 mg Sodium Chloride (Nacl 0.9%) 1,000 mls @ 100 mls/hr IV .Q10H [facility] Stop: 02/08/17 00:03 Last Admin: 12/15/16 00:34 Dose: 100 mls/hr Miscellaneous (Clinical Monitoring) 1 ea PRN PRN PRN Reason: RENAL DOSING Stop: 02/08/17 08:06 Multivitamins/Vitamin C (Theragran) 1 tab PO DAILY [facility] Stop: 02/08/17 08:59 Last Admin: 12/15/16 08:50 Dose: 1 tab Pantoprazole Sodium (Protonix) 40 mg PO BIDAC [facility] Stop: 02/10/17 16:29 Last Admin: 12/15/16 08:50 Dose: 40 mg - Procedures Procedures: Procedures Procedure Code Date EGD BIOPSY SINGLE/MULTIPLE 01057 12/09/16 EXCISION OF ESOPHAGUS, ENDO, DIAGN [id number] 12/09/16 EXCISION OF STOMACH, ENDO, DIAGN [id number] 12/09/16 Assessment/Plan - Problem List Patient Problems: All Active Problems anemia r/o gi bleed (Acute) h/o atrial fibrillation (Acute) h/o copd (Acute) h/o gout (Acute) h/o inferior wall infraction (Acute) h/o recent pneumonia (Acute) - Plan Plan: continue current care management
--- NOTE | 2016-12-23 10:57 | Discharge Summary ---
The patient is admitted through the ER from custodial with chief complaint of upper GI bleeding and having an episode of black tarry stool. The patient was admitted to Med/Surg floor with the history of gout, atrial fibrillation, history of anemia. The patient had an EGD and biopsy, biopsy came out negative for H. pylori____, negative for celiac disease. PHYSICAL EXAMINATION: GENERAL: The patient is awake, alert, and oriented. VITAL SIGNS: Stable. HEENT: Head normocephalic, atraumatic. ENT is normal. NECK: Supple, negative for JVP. CARDIOVASCULAR: S1, S2 with the regular heartbeat. LUNGS: Clear to auscultation. ABDOMEN: Soft, nontender, positive bowel sounds. ASSESSMENT: The patient has been diagnosed with mild gastritis. DISCHARGE PLAN: The patient will go back to [facility] the [facility]hab for continuity of care. JOB# [id number]
== END 2016-12-15 15:20 | DRG 871 ==
LOC: ER 17:27 → TELE 23:30
PROVIDERS: ADMIT Internal Medicine; ATTEND Internal Medicine
PROC: 0DB68ZX Excision of Stomach, Via Natural or Artificial Opening Endoscopic, Diagnostic (ICD-10-PCS; principal; 2016-12-12)
PROC: 0DB58ZX Excision of Esophagus, Via Natural or Artificial Opening Endoscopic, Diagnostic (ICD-10-PCS; 2016-12-12)
PROC: 0DB98ZX Excision of Duodenum, Via Natural or Artificial Opening Endoscopic, Diagnostic (ICD-10-PCS; 2016-12-12)
DX: A41.9 Sepsis, unspecified organism (principal); N17.0 Acute kidney failure with tubular necrosis; K92.2 Gastrointestinal hemorrhage, unspecified; K26.3 Acute duodenal ulcer without hemorrhage or perforation; K26.9 Duodenal ulcer, unspecified as acute or chronic, without hemorrhage or perforation; I48.91 Unspecified atrial fibrillation; N39.0 Urinary tract infection, site not specified; J44.9 Chronic obstructive pulmonary disease, unspecified; K22.2 Esophageal obstruction; D64.9 Anemia, unspecified; M10.9 Gout, unspecified; I25.2 Old myocardial infarction; K29.70 Gastritis, unspecified, without bleeding
CPT/HCPCS: 36415-UA; 71010-TC; 80048-TC; 80053-TC; 80061-TC; 80162-TC; 81001-TC; 82948-90; 83051-90; 84443-TC; 85007-TC; 85025-TC; 85027-TC; 85610-TC; 87086-90; 88305-90; 88312-90; 88313-90; 93005; C9113; J0696; J2704; J7030; Z7610